=== PATIENT | male | born 1980 | race Caucasian/White ===

== ENCOUNTER 2018-09-04 14:57 | Emergency (ER) | payer OTHER, SELFPAY ==
[2018-09-04 15:06] VITALS: BP 152/86; PULSE 82; RESP 16; TEMP 37; O2SAT 97
--- NOTE | 2018-09-04 15:14 | ED.GENADUL_ITS ---
Discharge Plan Disposition Patient Disposition: HOME Condition: Improving Discharge Details Chief Complaint: Sorethroat Clinical Impression: Acute pharyngitis Primary Care Provider: None,None ED Provider: Jez Henry Home Meds and New Rx's Prescriptions: New azithromycin 250 mg tablet See Rx Instructions .ROUTE .COMPLEX Qty: 6 RF: 0 Continued ibuprofen 200 MG tablet 2 tab PO PRN PRNRF: 0 Discharge Instructions Instructions: Pharyngitis (ED) Additional Instructions: Please take antibiotics as prescribed. Continue to push fluids with small frequent sips of non-caffeinated beverages and/or popsicles. Cepacol lozenges if needed. Tylenol and/or ibuprofen as needed for pain Medical Decision Making 38-year-old healthy male presents with 3 days of sore throat. On exam he has erythematous tonsillar pillars with overlying white exudate. Rapid strep test is positive. He is controlling secretions, there is no evidence of forming abscess. Given his penicillin allergy, we will treat with a course of azithromycin. Patient is stable for outpatient management HPI General Mode of arrival: ambulatory . Date/Time Provider Initiated Documentation: 09/04/18 15:00 . Limitations to Documentation: no limitations . Information obtained by: patient . History of Present Illness 38 year old M presents to the emergency department with the chief complaint of Sore throat for 3 d, described as moderate, Quality is described as dull and constant, and is localized to the mouth. Patient reports no radiation. Patient started experiencing this day(s) and it has been constant. No relieving factors improve symptom(s), Eating worsens symptoms . Patient notes no other symptoms. and other (No drooling or change to voice); denies fever/chills and nausea/vomiting. Patient did receive the following treatments prior to [facility], NSAID Related Data Home Medications Medication Instructions Recorded Confirmed ibuprofen 2 tab PO PRN PRN 10/28/14 09/04/18 azithromycin See Rx Instructions .ROUTE 09/04/18 .COMPLEX #6 tab Previous Rx's Medication Instructions Recorded azithromycin See Rx Instructions .ROUTE 09/04/18 .COMPLEX #6 tab Allergies Allergy/AdvReac Type Severity Reaction Status Date / Time Penicillins Allergy unknown Unverified 09/04/18 15:10 General Stated Complaint: Sorethroat LEELA: 4 Review of Systems Review of Systems 6 systems reviewed and otherwise negative [facility] Social History Smoking/Tobacco Use Status: Never Alcohol Intake: current Alcohol Intake frequency: a few times a month Drug use: Never Do you feel safe at home: Yes Do you feel safe in your relationship?: Yes Exam Narrative Exam Narrative: GEN: awake, alert, oriented 3. Pleasant, well groomed, interactive. HEAD: Normocephalic, atraumatic ENT: Mucous membranes moist, oropharynx erythematous tonsillar pillars with overlying white exudate. The uvula is midline. There is no asymmetrical swelling, External ear exam unremarkable EYES: PERRL, EOMI NECK: Full ROM, no menigismus CHEST/RESP: Nontender, clear to auscultation bilateral, no wheeze/rhonchi/rales CARDIOVASCULAR: RRR, no murmur, rub arabella. 2+ Rad pulse bilateral ABDOMEN: Soft, nontender, no mass. +Bowel sounds EXT: Full ROM, no edema, no rash Neuro: Grossly normal neurologic exam, conversant, interactive. Psych: Speech fluent, thoughts congruent, affect normal Course Vital Signs Temperature 37 C 09/04/18 15:06 Pulse 82 09/04/18 15:06 Respiratory Rate 16 09/04/18 15:06 Blood Pressure 152/86 H 09/04/18 15:06 Pulse Oximetry 97 09/04/18 15:06 Temperature 37 C 09/04/18 15:06 Temperature Source Temporal Artery Scan 09/04/18 15:06 Pulse 82 09/04/18 15:06 Respiratory Rate 16 09/04/18 15:06 Respiratory Effort Non-Labored 09/04/18 15:09 Blood Pressure 152/86 H 09/04/18 15:06 Blood Pressure Position Sitting 09/04/18 15:06 Pulse Oximetry 97 09/04/18 15:06 Oxygen Delivery Method Room Air 09/04/18 15:06 Oxygen Flow Rate 0 09/04/18 15:06 Pain Level 8 09/04/18 15:06 Lab/Test Results Lab/Test Results: POC Strep Test-MAN[facility](Rapid) Start: 09/04/18 15:06 Freq: .Rapid Strep Test Status: Active Protocol: Document 09/04/18 15:11 SGL (Rec: 09/04/18 15:11 SGL [id number]) Strep test-[facility](Rapid)-POC POC-Strep test-[facility] (Rapid) Positive POC-Strep test-[facility] (Rapid) Positive
== END 2018-09-04 15:25 | disposition home or self-care (01) ==
PROVIDERS: Emergency Provider Emergency Medicine
DX: J02.0 Streptococcal pharyngitis (principal)
CPT/HCPCS: 87880; 99283